=== PATIENT | female | born 1970 ===

== ENCOUNTER 2018-01-12 17:55 | Emergency (ER) | payer SELFPAY ==
[~2018-01-12] VITALS: Ht 172.7 cm; Wt 73.0 kg
[2018-01-12 20:58] LABS: CLARITY URINE CLEAR (CLEAR); COLOR URINE YELLOW (YELLOW); KETONES URINE NEGATIVE (NEGATIVE); LEUKOCYTE ESTERASE URINE NEGATIVE (NEGATIVE); NITRITE URINE NEGATIVE (NEGATIVE); OCCULT BLOOD URINE 3+ (NEGATIVE); PH URINE 5.5 (4.5-8.0); PROTEIN URINE NEGATIVE (NEGATIVE); SPECIFIC GRAVITY URINE 1.021 (1.005-1.030); UROBILINOGEN URINE 0.2 E.U./dL (0.2-1.0)
[2018-01-12 21:50] VITALS: BP 137/67
[2018-01-12 22:28] LABS: BASOPHILS % 0.8 % (0.0-2.0); EOSINOPHILS % 2.7 % (0.0-5.0); HEMATOCRIT. 32.2 % (36.0-48.0); HEMOGLOBIN. 10.1 g/dL (12.0-16.0); LYMPHOCYTES % 24.4 % (20.0-50.0); MEAN CORPUSCULAR HEMOGLOBIN 22.5 pg (28.0-32.0); MEAN CORPUSCULAR VOLUME 71.7 fL (81.0-99.0); MEAN PLATELET VOLUME 7.4 fl (7.4-10.4); MONOCYTES % 9.8 % (2.0-8.0); NEUTROPHILS % 62.3 % (40.0-76.0); PLATELET 430 x1000/uL (130-400); RED BLOOD CELL COUNT 4.49 mill/uL (4.2-5.4); RED CELL DISTRIBUTION WIDTH 19.9 % (11.6-14.6)
[2018-01-12 22:33] LABS: CHLORIDE 104 mEq/L (98-107)
== END 2018-01-12 23:33 | disposition home or self-care (01) ==
LOC: ER 17:55
DX: J18.9 Pneumonia, unspecified organism (principal); D64.9 Anemia, unspecified; R42 Dizziness and giddiness; R04.0 Epistaxis
CPT/HCPCS: 36415; 71045; 80048; 81003; 85025; 93005; 99285